=== PATIENT | male | born 1975 | race Caucasian/White ===

== ENCOUNTER 2016-08-08 00:31 | Emergency (ER) | payer OTHER ==
[~2016-08-08 00:31] MED LIST: LORTAB 5-325 M1 EAC1 PO
[2016-08-08] MEDS ORDERED: NO HOME MEDICATION XX (00:46)
[2016-08-08] MEDS ORDERED: ANUSOL-HC25 MG PR (01:19)
== END 2016-08-08 01:24 ==
LOC: EDMED 00:31
DX: K64.4 Residual hemorrhoidal skin tags (principal)